=== PATIENT | male | born 1950 ===

== ENCOUNTER 2016-08-08 16:44 | Emergency (ER) | payer MEDICARE ==
[2016-08-08 16:48] VITALS: BP 131/87; PULSE 89; RESP 18; TEMP 97.5; O2SAT 100
[2016-08-08 18:14] LABS: BASO % 0.9 % (0.0-2.0); EOS # 0.1 K/uL (0.0-0.7); EOS % 1.5 % (0.0-4.0); LYMPH # 1.8 K/uL (1.0-4.3); LYMPH % 38.1 % (20.0-40.0); MEAN CELL VOLUME 78.9 fl (80.0-94.0); MEAN CORPUSCULAR HEMOGLOBIN 25.5 pg (27.0-31.0); MEAN CORPUSCULAR HGB CONC 32.4 g/dL (33.0-37.0); MEAN PLATELET VOLUME 9.3 fl (7.2-11.7); MONO # 0.3 K/uL (0.0-0.8); MONO % 5.5 % (0.0-10.0); NEUT # 2.6 K/uL (1.8-7.0); NRBC % 0.1 % (0.0-0.0); RED CELL DISTRIBUTION WIDTH 14.6 % (11.5-14.5); WHITE BLOOD COUNT 4.8 K/uL (4.8-10.8)
[2016-08-08 18:21] LABS: ALB/GLOB RATIO 1.2 (1.0-2.1); ALKALINE PHOSPHATASE 203 U/L (38-126); ALT/SGPT 30 U/L (21-72); AST/SGOT 20 U/L (17-59); BILIRUBIN,TOTAL 0.5 mg/dl (0.2-1.3); BLOOD UREA NITROGEN 27 mg/dl (9-20); CALCIUM 9.6 mg/dL (8.4-10.2); CARBON DIOXIDE 30 mmol/L (22-30); CHLORIDE 97 mmol/L (98-107); GFR AFRICAN-AMERICAN > 60; GLUCOSE,RANDOM 350 mg/dL (75-110); SODIUM 139 mmol/l (132-148); TOTAL PROTEIN 7.7 G/DL (6.3-8.2)
--- NOTE | 2016-08-08 18:30 | ED PDOC ---
Lower Extremity Pain/Injury Time Seen by Provider: 08/08/16 18:28 Chief Complaint (Nursing): Lower Extremity Problem/Injury Chief Complaint (Provider): leg swelling History Per: Patient History/Exam Limitations: no limitations Additional Complaint(s): 65yo M in ED with hx of DM, HTN, and hx of liver transplant >20years ago in ED c /o of back pain on left side with swelling to left foot and burning sensation to left leg. denies SOB, CP, abd pain, freq. urination, blood in urine, nausea or vomiting. Pt admits to hx of cellulites 3 months ago to left foot which has resolved, but the swelling still mildly persistent. Past Medical History Reviewed: Historical Data, Nursing Documentation, Vital Signs Vital Signs: Last Vital Signs Temp 97.5 F L 08/08/16 16:45 Pulse 89 08/08/16 16:45 Resp 18 08/08/16 16:45 BP 131/87 08/08/16 16:45 Pulse Ox 100 08/08/16 16:45 - Medical History PMH: HTN - Family History Family History: States: No Known Family Hx - Immunization History Hx Tetanus Toxoid Vaccination: No Hx Influenza Vaccination: No Hx Pneumococcal Vaccination: No - Allergies Allergies/Adverse Reactions: Allergies Allergy/AdvReac Type Severity Reaction Status Date / Time No Known Allergies Allergy Verified 08/08/16 17:30 Wells Criteria for PE - Wells Criteria for Pulmonary Embolism Clinical Signs and Symptoms of DVT: No P.E is #1 Diagnosis, or Equally Likely: No Heart Rate >100: No Immobilization at least 3 days;Surgery previous 4 weeks: No Previous, objectively diagnosed PE or DVT: No Hemoptysis: No Malignancy w/treatment within 6 months, or palliative: No Total Score: 0 Review of Systems ROS Statement: Except As Marked, All Systems Reviewed And Found Negative Musculoskeletal: Positive for: Back Pain, Leg Pain Physical Exam - Reviewed Nursing Documentation Reviewed: Yes Vital Signs Reviewed: Yes - Physical Exam Appears: Positive for: Well, Non-toxic, No Acute Distress Head Exam: Positive for: ATRAUMATIC, NORMAL INSPECTION, NORMOCEPHALIC Skin: Positive for: Normal Color, Warm, DRY Cardiovascular/Chest: Positive for: Regular Rate, Rhythm Respiratory: Positive for: CNT, Normal Breath Sounds Gastrointestinal/Abdominal: Positive for: Normal Exam, Bowel Sounds, Soft. Negative for: Tenderness Back: Positive for: L CVA Tenderness. Negative for: R CVA Tenderness Extremity: Positive for: Normal ROM, Swelling (to left foot, nueovasc intact. ) . Negative for: Calf Tenderness Neurologic/Psych: Positive for: Alert, Oriented - Laboratory Results Result Diagrams: 08/08/16 18:00 08/08/16 18:00 - ECG O2 Sat by Pulse Oximetry: 100 - CT Scan/US US Other Rad Studies (CT/US): Interpreted By Me ((-) DVT) Medical Decision Making Medical Decision Making: PT labs are WNL and US shows no DVT. Disposition - Clinical Impression Clinical Impression: Back pain, Foot pain - Disposition Referrals: Podiatry Clinic [Outside] Disposition: Routine/Home Disposition Time: 10:19 Condition: STABLE Instructions: Leg Edema (ED), Back Pain (ED) Print Language: GERMAN Patient Signed Over To: Skip Colon
[2016-08-08 19:29] LABS: PARTIAL THROMBOPLASTIN TIME 29.5 Seconds (25.6-37.1)
--- NOTE | 2016-08-08 20:36 | US ---
EXAM: US Duplex Left Lower Extremity Veins CLINICAL HISTORY: 65 years old, male; Signs and symptoms; Swelling of limb; Lower extremity, left; Additional info: Lower leg swelling/pain to calf TECHNIQUE: Real-time ultrasound scan of the veins of the left lower extremity with color Doppler flow, spectral waveform analysis and compression. EXAM DATE/TIME: 08/08/2016 5:30 PM COMPARISON: There are no prior studies for comparison. FINDINGS: Deep veins: Common femoral, superficial femoral, popliteal and posterior tibial veins were evaluated. All veins examined are compressible. There are no intraluminal filling defects. There is expected blood flow on Doppler imaging. There is change in waveform with augmentation. Impression: No deep venous thrombosis in the visualized vascular segments of the left lower extremity
[2016-08-08 23:19] LABS: GRANULAR CAST 1 /lpf (0-1); PH,URINE 5.5 (5.0-8.0); RBC URINE 0 /hpf (0-3); URINE BACTERIA FEW (<OCC); URINE BILIRUBIN NEGATIVE (NEGATIVE); URINE BLOOD NEGATIVE (NEGATIVE); URINE COLOR LT YELLOW (YELLOW); URINE GLUCOSE (UA) >=1000 mg/dL (Normal); URINE KETONE NEGATIVE (NEGATIVE); URINE LEUKOCYTE ESTERASE NEGATIVE Leu/uL (Negative); URINE PROTEIN 30 mg/dL (NEGATIVE); URINE UROBILINOGEN 0.2 mg/dL (0.2-1.0); WBC URINE 0 /hpf (0-5)
--- NOTE | 2016-08-08 23:33 | ED PDOC ---
- Laboratory Results Result Diagrams: 08/08/16 18:00 08/08/16 18:00 - ECG O2 Sat by Pulse Oximetry: 100 - Progress ED Course And Treament: Signed out to me pending UA. On my initial evaluation, pt. offers no complaints. Denies back pain at this time. Informed of results and instructed to f/u with PMD. Disposition - Clinical Impression Clinical Impression: Back pain, Foot pain - POA Present On Arrival: None - Disposition Referrals: Podiatry Clinic [Outside] Disposition: Routine/Home Disposition Time: 23:32 Condition: STABLE Instructions: Back Pain (ED), Leg Edema (ED) Print Language: VIET[place]
== END 2016-08-09 00:01 | disposition home or self-care (01) ==
LOC: H.ER 16:44
DX: M54.9 Dorsalgia, unspecified (principal); R60.0 Localized edema; I10 Essential (primary) hypertension